=== PATIENT | female | born 1980 | race Two or more races ===

== ENCOUNTER 2024-01-07 15:38 | Emergency (ER) | payer MEDICARE, OTHER ==
[~2024-01-07] VITALS: Ht 152.4 cm; Wt 61.7 kg
[~2024-01-07 15:38] MED LIST: ALBU8.5H8 INH; CALC0.253 PO; CALC500T53 PO; CLIN35GE3 TP; DEXL30CA3 PO; DOCU-141 PO; FERR325T24 PO; FLUT16SP2 NS; FURO-151 PO; HYDR2TAB7 PO; MIDO10TA6 PO; MYCO250C PO; TACR1CAP2 PO
[2024-01-07] MEDS ORDERED: LIDOCAINE HCL 1% 20 ML VIAL ONE (16:00)
[2024-01-07] MEDS ORDERED: LIDOCAINE HCL 2% 20 ML VIAL ONE (16:04)
[2024-01-07] MEDS: LIDOCAINE HCL 2% 20 ML VIAL IJ ONE (16:58)
[2024-01-07] MEDS ORDERED: BACITRACIN ZINC OINT 15 GM TUBE ONE (16:59)
[2024-01-07] MEDS: BACITRACIN ZINC OINT 15 GM TUBE TOP ONE (17:10)
[2024-01-07 17:13] VITALS: BP 128/76; O2SAT 99
== END 2024-01-07 17:13 | disposition home or self-care (01) ==
LOC: ER 15:40
DX: S61.214A Laceration without foreign body of right ring finger without damage to nail, initial encounter (principal); S61.216A Laceration without foreign body of right little finger without damage to nail, initial encounter; K21.9 Gastro-esophageal reflux disease without esophagitis; Z98.890 Other specified postprocedural states; Z60.2 Problems related to living alone; Z88.0 Allergy status to penicillin; Z88.5 Allergy status to narcotic agent; Z88.1 Allergy status to other antibiotic agents; Z79.899 Other long term (current) drug therapy; W25.XXXA Contact with sharp glass, initial encounter; Y93.89 Activity, other specified; Y92.89 Other specified places as the place of occurrence of the external cause; Y99.8 Other external cause status
CPT/HCPCS: 12002; 99283; J3490; A4606; A4663